=== PATIENT | female | born 1950 | race Caucasian/White ===

== ENCOUNTER → 2019-04-25 16:19 | Outpatient (CLI) | payer MEDICARE, OTHER, SELFPAY ==
--- NOTE | 2019-04-25 | DI.MG.S_ITS ---
BILATERAL DIGITAL SCREENING MAMMOGRAM 3D/2D WITH CAD: 04/25/2019 CLINICAL: Routine screening. Family history of breast cancer. Comparison is made to exams dated: 03/30/2018 mammogram, 03/10/2017 mammogram, and 03/08/2016 mammogram - [facility]. There are scattered fibroglandular elements in both breasts. Current study was also evaluated with a Computer Aided Detection (CAD) system. There are new grouped heterogeneous calcifications in the right breast central to the nipple posterior depth. No other significant masses, calcifications, or other findings are seen in either breast. IMPRESSION: INCOMPLETE: NEEDS ADDITIONAL IMAGING EVALUATION The new grouped heterogeneous calcifications in the right breast are indeterminate. Mediolateral and spot magnification views are recommended. This exam was interpreted at Station ID: [id number]. NOTE: For mammograms, a report in lay terms will be sent to the patient. Approximately 15% of breast malignancies will not be visualized mammographically. In the management of a palpable breast mass, a negative mammogram must not discourage biopsy of a clinically suspicious lesion. Electronically Signed By: Corey rich/yanelis:04/26/2019 09:48:06 letter sent: Additional Imaging Needed ACR BI-RADS Category 0: Incomplete 3340F
== END ==
PROVIDERS: Family Provider Nurse Practitioner Family; PCP Nurse Practitioner Family; Visit Provider Nurse Practitioner Family
DX: Z12.31 Encounter for screening mammogram for malignant neoplasm of breast (principal); Z80.3 Family history of malignant neoplasm of breast
CPT/HCPCS: 77063; 77067

== ENCOUNTER → 2019-05-15 13:33 | Outpatient (CLI) | payer MEDICARE, OTHER, SELFPAY ==
--- NOTE | 2019-05-15 13:37 | DI.MG.S_ITS ---
UNILATERAL RIGHT DIGITAL DIAGNOSTIC MAMMOGRAM 3D/2D WITH ADDITIONAL VIEWS: 05/15/2019 CLINICAL: Additional evaluation requested from prior study. Comparison is made to exams dated: 04/25/2019 mammogram, 03/30/2018 mammogram, and 03/10/2017 mammogram - [facility]. There are scattered fibroglandular elements in right breast. The previously described grouped heterogeneous pleomorphic calcifications in the right breast central to the nipple middle depth are confirmed on today's additional views. These are new compared to screening mammogram of 2018. No associated mass or architectural distortion. No other significant masses or calcifications are seen in the breast. IMPRESSION: SUSPICIOUS OF MALIGNANCY The new grouped heterogeneous, pleomorphic calcifications in the right breast are suspicious of malignancy. A stereotactic biopsy is recommended. Findings were discussed with the patient by Dr. Anguiano. The patient agreed to proceed with stereotactic guided biopsy which will be scheduled for a later date. This exam was interpreted at Station ID: [id number]. NOTE: For mammograms, a report in lay terms will be sent to the patient. Approximately 15% of breast malignancies will not be visualized mammographically. In the management of a palpable breast mass, a negative mammogram must not discourage biopsy of a clinically suspicious lesion. Electronically Signed By: Corey Anguiano M.D. aty/:05/15/2019 14:41:09 letter sent: Biopsy Required ACR BI-RADS Category 4: Suspicious abnormality 3344F
== END ==
PROVIDERS: PCP Nurse Practitioner Family; Visit Provider Nurse Practitioner Family
DX: R92.1 Mammographic calcification found on diagnostic imaging of breast (principal)
CPT/HCPCS: 77065; G0279

== ENCOUNTER → 2019-09-27 09:56 | Outpatient (CLI) | payer MEDICARE, OTHER, SELFPAY | PROVIDERS: PCP Nurse Practitioner Family; Visit Provider Nurse Practitioner Family | DX: Z78.0 Asymptomatic menopausal state (principal); Z85.3 Personal history of malignant neoplasm of breast; Z90.722 Acquired absence of ovaries, bilateral | CPT/HCPCS: 77080 ==

== ENCOUNTER 2021-03-11 16:45 | Outpatient (RCR) | payer MEDICARE, OTHER, SELFPAY ==
--- NOTE | 2021-01-22 11:54 | PT.OIE ---
Current Diagnoses Pain in right shoulder (01/22/21) Stiffness of right shoulder, not elsewhere classified (01/22/21) Visit Care Team Role Provider Type Charis Russo MD Attending Provider Physician Primary Care Provider Referring Provider Specialty: [facility] Address: [address] [place] [address], [facility] [place], [address] Email: [email or web address] Physical Therapy Initial Evaluation PT-OP-A Visit Information Start: 01/22/21 11:19 Freq: Status: Active Protocol: Document 01/22/21 10:30 DCW (Rec: 01/22/21 11:54 DCW [id number]) Out-Patient Physical Therapy Visit Information Visit Information Visit Type Initial Evaluation Visit Start Time 10:30 Visit Stop Time 11:15 Total Visit Minutes 45 Visit Number 1 Number of ART HISTORY INSTRUCTOR Visits 0 Evaluation Information Evaluation Date 01/22/21 PT-OP-B Current Condition Start: 01/22/21 11:19 Freq: Status: Active Protocol: Document 01/22/21 10:30 DCW (Rec: 01/22/21 11:54 DCW [id number]) Current Condition History of Current Condition Onset Date Two year history Current Complaints Right shoulder pain and stiffness History of Current Condition Pt is a 70 year old female presenting is complaints of right shoulder stiffness. Pt has been having this difficulty since she had radiation to treat breast cancer two years ago. Pt reports she feels weaker in her right arm, and while she has relatively normal ROM, she has increased pain and tightness with overhead activities. Notes her shoulder aches most of the time. Pt also reports left shoulder surgery ten years ago to clean up some bone spurs, and she got frozen shoulder afterward, so she is worried about getting it on the right side now, since she is moving it less. Treatment Goals Patient/Caregiver Goals Improve flexibility and decrease pain in right shoulder PT-OP-C Subjective Start: 01/22/21 11:19 Freq: Status: Active Protocol: Document 01/22/21 10:30 DCW (Rec: 01/22/21 11:54 DCW [id number]) OP-PT Subjective Patient Comments Patient Comments It's not terrible, I could probably live with it, I'd just rather fix it if I could. Patient Reported Progress Same Patient Questionnaires Quick Dash- Upper Extremity Quick Dash UE Score 20% Quick Dash UE Impairment 20 to 39% Impaired (Score 20- 39) OP-PT Pain Assessment Pain Assessment Grid Paper Pain Assessment Grid Completed Yes Location Right Shoulder Intensity 4 Scale Used Numeric (0 - 10) Description Tender,Tightness PT-OP-E Functional Tests Start: 01/22/21 11:19 Freq: Status: Active Protocol: Document 01/22/21 10:30 DCW (Rec: 01/22/21 11:54 DCW [id number]) Functional Tests Apley's Scratch Test Action 1- Left Posterior opposite shoulder Action 1- Right Posterior opposite shoulder Action 2- Left T3 Action 2- Right C7 Action 3- Left T6 Action 3- Right T11 PT-OP-F Manual Assessment Start: 01/22/21 11:19 Freq: Status: Active Protocol: Document 01/22/21 10:30 DCW (Rec: 01/22/21 11:54 DCW [id number]) Manual Assessments Soft Tissue Assessment Soft Tissue Mobility Assessment Severe tightness with tenderness to palpation 3/4: Wincing and withdraw R Infraspinatus Moderate tightness with tenderness to palpation 2/4: Pain with wincing R Teres Minor and R Subscapularis Joint Mobility Assessment Joint Mobility Assessment Poor right scapulothoracic rhythm, right scapula moves in a 1:1 ratio with humerus in abduction until it reaches its endrange. PT-OP-K Range of Motion Start: 01/22/21 11:19 Freq: Status: Active Protocol: Document 01/22/21 10:30 DCW (Rec: 01/22/21 11:54 DCW [id number]) Shoulder Goniometric Range of Motion Shoulder Right Active Shoulder ROM WFL Yes Testing Position Sitting Comments ROM WNL, pain with flexion > 140? and abduction >100? PT-OP-M Strength Start: 01/22/21 11:19 Freq: Status: Active Protocol: Document 01/22/21 10:30 DCW (Rec: 01/22/21 11:54 DCW [id number]) Shoulder Strength Shoulder Manual Muscle Testing Right Flexion 4+ Good+ Extension 5 Normal Abduction (C5) 4 Good External Rotation 5 Normal Internal Rotation 5 Normal Left Flexion 5 Normal Extension 5 Normal Abduction (C5) 5 Normal External Rotation 5 Normal Internal Rotation 5 Normal PT-OP-T Assessment and Plan Start: 01/22/21 11:19 Freq: Status: Active Protocol: Document 01/22/21 10:30 DCW (Rec: 01/22/21 11:54 DCW [id number]) Physical Therapy Assessment Rehab Potential Rehabilitation Potential Excellent Evaluation Complexity Number of Personal Factors/Comorbidities 1-2 Number of Body Systems Impaired 1-2 Clinical Presentation at Evaluation Stable Impairments Impairments Activity Tolerance,Functional Activities,Functional Mobility ,Pain,ROM,Soft Tissue Mobility ,Tone Goals Two Impairment Difficulty performing normal exercise program due to pain with overhead ROM Engineering Lab Technician Goal (LTG) Pt to demonstrate pain free ROM in right shoulder with flexion and abduction to 170? LTG Duration 03/22/21 One Impairment Pt does not have an appropriate home exercise program Short Term Goal (STG) Pt to be independent and compliant with an appropriate HEP STG Duration 02/19/21 Assessment Summary Assessment Pt presents with signs and symptoms of increased parascapular tone and poor scapulothoracic rhythm. Pt has especially high tone in right infraspinatus and subscap, which results in her right scapula moving completely in tandem with her humerus, and then feeling tightness and pain upon her scapula reaching its fully abducted position. Most likely, this could be a side-effect from her radiation two years ago, however pt should benefit from skilled therapy focusing mainly on STM , flexibility, and joint mobilizations. Strengthening may also be beneficial, but overall pt does demonstrate fairly good strength at baseline. Physical Therapy Plan Frequency and Duration Frequency of Treatment 2x/Week Duration of Treatment Two months Plan of Care Start Date 01/22/21 Plan of Care End Date 03/22/21 Therapeutic Interventions Therapeutic Interventions Home Exercise Program,Joint Mobilizations,Manual Therapy, Neuromuscular Re-education, Patient/Caregiver Education, Self-Care/Home Management,Soft Tissue Mobilization, Therapeutic Exercises Next Visit Focus/Plan Next Note Type Treatment Note Next Visit Plan STM, flexibility, joint mobilization
--- NOTE | 2021-01-22 11:55 | PT.OPPOC ---
Physical, Occupational & Speech Therapy At [facility] Current Diagnoses Pain in right shoulder (01/22/21) Stiffness of right shoulder, not elsewhere classified (01/22/21) Visit Care Team Role Provider Type Charis Russo MD Attending Provider Physician Primary Care Provider Referring Provider Specialty: [facility] Address: [address] [place] [address], [employer] Email: [email or web address] Plan Of Care PT-OP-T Assessment and Plan Start: 01/22/21 11:19 Freq: Status: Active Protocol: Document 01/22/21 10:30 DCW (Rec: 01/22/21 11:54 DCW [id number]) Physical Therapy Assessment Rehab Potential Rehabilitation Potential Excellent Evaluation Complexity Number of Personal Factors/Comorbidities 1-2 Number of Body Systems Impaired 1-2 Clinical Presentation at Evaluation Stable Impairments Impairments Activity Tolerance,Functional Activities,Functional Mobility ,Pain,ROM,Soft Tissue Mobility ,Tone Goals Two Impairment Difficulty performing normal exercise program due to pain with overhead ROM Group Home Goal (LTG) Pt to demonstrate pain free ROM in right shoulder with flexion and abduction to 170? LTG Duration 03/22/21 One Impairment Pt does not have an appropriate home exercise program Short Term Goal (STG) Pt to be independent and compliant with an appropriate HEP STG Duration 02/19/21 Assessment Summary Assessment Pt presents with signs and symptoms of increased parascapular tone and poor scapulothoracic rhythm. Pt has especially high tone in right infraspinatus and subscap, which results in her right scapula moving completely in tandem with her humerus, and then feeling tightness and pain upon her scapula reaching its fully abducted position. Most likely, this could be a side-effect from her radiation two years ago, however pt should benefit from skilled therapy focusing mainly on STM , flexibility, and joint mobilizations. Strengthening may also be beneficial, but overall pt does demonstrate fairly good strength at baseline. Physical Therapy Plan Frequency and Duration Frequency of Treatment 2x/Week Duration of Treatment Two months Plan of Care Start Date 01/22/21 Plan of Care End Date 03/22/21 Therapeutic Interventions Therapeutic Interventions Home Exercise Program,Joint Mobilizations,Manual Therapy, Neuromuscular Re-education, Patient/Caregiver Education, Self-Care/Home Management,Soft Tissue Mobilization, Therapeutic Exercises Next Visit Focus/Plan Next Note Type Treatment Note Next Visit Plan STM, flexibility, joint mobilization Plan of Care Dates Plan of Care Start Date 01/22/21 Plan of Care End Date 03/22/21 Electronically Signed by: Sondio Hull, PT 01/22/21 2114 Please Sign and Return: I have reviewed this Plan of Care and certify that the skilled therapy services above are required to meet the patient?s needs. Physician Signature Date Printed Name and Credentials Clinical Instructor Signature Printed Name and Credentials
--- NOTE | 2021-01-27 09:50 | PT.OTN ---
Current Diagnoses Pain in right shoulder (01/27/21) Stiffness of right shoulder, not elsewhere classified (01/27/21) Physical Therapy Treatment Note PT-OP-A Visit Information Start: 01/22/21 11:19 Freq: Status: Active Protocol: Document 01/27/21 09:03 LD (Rec: 01/27/21 12:24 LD [id number]) Out-Patient Physical Therapy Visit Information Visit Information Visit Type Treatment Note Visit Note SPTA Blossom co led tx w/ SALES REPRESENTATIVE GROCERIES Sue. Visit Start Time 09:03 Visit Stop Time 09:50 Total Visit Minutes 47 Visit Number 2 Number of SALES REPRESENTATIVE GROCERIES Visits 1 PT-OP-B Current Condition Start: 01/22/21 11:19 Freq: Status: Active Protocol: Document 01/22/21 10:30 DCW (Rec: 01/22/21 11:54 DCW [id number]) Current Condition History of Current Condition Onset Date Two year history Current Complaints Right shoulder pain and stiffness History of Current Condition Pt is a 70 year old female presenting is complaints of right shoulder stiffness. Pt has been having this difficulty since she had radiation to treat breast cancer two years ago. Pt reports she feels weaker in her right arm, and while she has relatively normal ROM, she has increased pain and tightness with overhead activities. Notes her shoulder aches most of the time. Pt also reports left shoulder surgery ten years ago to clean up some bone spurs, and she got frozen shoulder afterward, so she is worried about getting it on the right side now, since she is moving it less. Treatment Goals Patient/Caregiver Goals Improve flexibility and decrease pain in right shoulder PT-OP-C Subjective Start: 01/22/21 11:19 Freq: Status: Active Protocol: Document 01/27/21 09:03 LD (Rec: 01/27/21 12:24 LD [id number]) OP-PT Subjective Patient Comments Patient Comments Pt reports feeling no pain after last treatment, ' whatever Artis did, I felt much better the next couple days, but pain came back.' Has a foam roller which she used frequently prior to covid. Pt also reports is getting covid vaccine on morning, may have to cancel appt on Tuesday depending on how she feels. PT-OP-E Functional Tests Start: 01/22/21 11:19 Freq: Status: Active Protocol: Document 01/22/21 10:30 DCW (Rec: 01/22/21 11:54 DCW [id number]) Functional Tests Apley's Scratch Test Action 1- Left Posterior opposite shoulder Action 1- Right Posterior opposite shoulder Action 2- Left T3 Action 2- Right C7 Action 3- Left T6 Action 3- Right T11 PT-OP-F Manual Assessment Start: 01/22/21 11:19 Freq: Status: Active Protocol: Document 01/22/21 10:30 DCW (Rec: 01/22/21 11:54 DCW [id number]) Manual Assessments Soft Tissue Assessment Soft Tissue Mobility Assessment Severe tightness with tenderness to palpation 3/4: Wincing and withdraw R Infraspinatus Moderate tightness with tenderness to palpation 2/4: Pain with wincing R Teres Minor and R Subscapularis Joint Mobility Assessment Joint Mobility Assessment Poor right scapulothoracic rhythm, right scapula moves in a 1:1 ratio with humerus in abduction until it reaches its endrange. PT-OP-K Range of Motion Start: 01/22/21 11:19 Freq: Status: Active Protocol: Document 01/22/21 10:30 DCW (Rec: 01/22/21 11:54 DCW [id number]) Shoulder Goniometric Range of Motion Shoulder Right Active Shoulder ROM WFL Yes Testing Position Sitting Comments ROM WNL, pain with flexion > 140? and abduction >100? PT-OP-M Strength Start: 01/22/21 11:19 Freq: Status: Active Protocol: Document 01/22/21 10:30 DCW (Rec: 01/22/21 11:54 DCW [id number]) Shoulder Strength Shoulder Manual Muscle Testing Right Flexion 4+ Good+ Extension 5 Normal Abduction (C5) 4 Good External Rotation 5 Normal Internal Rotation 5 Normal Left Flexion 5 Normal Extension 5 Normal Abduction (C5) 5 Normal External Rotation 5 Normal Internal Rotation 5 Normal PT-OP-Q Treatments Start: 01/22/21 11:19 Freq: Status: Active Protocol: Document 01/27/21 09:03 LD (Rec: 01/27/21 12:24 LD [id number]) Therapeutic Exercises Supine Exercises AROM flexion Side bilateral Equipment Used dowel Reps/Minutes 10x Comments tactile cues for scap depression, inferior humeral glide Prone Exercises scap retraction Side bilateral Reps/Minutes 5x5 sec Comments tactile cues for neutral CS and scap depression Sitting Exercises pec stretch Sitting Exercise Name table (supine) Side bilateral Equipment Used foam roll Reps/Minutes 2x30 sec Comments pt has foam roll at home she can use levator scap stretch Comments gentle pressure with opposite UE, same UE for stability upper trap stretch Side bilateral Reps/Minutes 2x30 sec Comments gentle pressure with opposite UE, same UE for stability Manual Therapy Treatment Soft Tissue Mobilization RTC Body Location R supra, infra, subscap, teres (distal>proximal) minor, upper trap Mobilization Type Myofascial Release, Oscillations,Strumming, Sustained Pressure Intensity/Depth Moderate Body Position supine,sidelying Joint Mobilizations GH post/inf glide Joint glenohumeral Direction posterior, inferior Grade II Body Position Supine GH anterior glide Joint glenohumeral Direction posterior, not anterior Grade II Body Position Supine Manual Techniques PNF R shld Body Location R shoulder Body Position Sidelying Reps/Duration 2x5 Comments PROM PT-OP-T Assessment and Plan Start: 01/22/21 11:19 Freq: Status: Active Protocol: Document 01/27/21 09:03 LD (Rec: 01/27/21 12:24 LD [id number]) Physical Therapy Assessment Goals Two Impairment Difficulty performing normal exercise program due to pain with overhead ROM Pig Conveyor Operator Goal (LTG) Pt to demonstrate pain free ROM in right shoulder with flexion and abduction to 170? LTG Duration 03/22/21 One Impairment Pt does not have an appropriate home exercise program Short Term Goal (STG) Pt to be independent and compliant with an appropriate HEP STG Duration 02/19/21 Assessment Summary Assessment Tx focus on manual and flexibility. Pt responded well to manual therapy. Added STMs , stretching and joint mobilization. Pt presents tightness in upper traps, requiring cues for scap stabilization and humeral depression awareness. Add open book next tx to increase scapular mobility with thoracic mobility. Pt reports no increased pain at end of tx. Physical Therapy Plan Frequency and Duration Frequency of Treatment 2x/Week Duration of Treatment Two months Plan of Care Start Date 01/22/21 Plan of Care End Date 03/22/21 Therapeutic Interventions Therapeutic Interventions Home Exercise Program,Joint Mobilizations,Manual Therapy, Neuromuscular Re-education, Patient/Caregiver Education, Self-Care/Home Management,Soft Tissue Mobilization, Therapeutic Exercises Next Visit Focus/Plan Next Note Type Treatment Note Next Visit Plan Assess response to last tx: manual, HEP review. Add open book next tx. Assess self use of foam roll for proper form. Possibility of cancelation due to covid shot. Continue to work on STM, flexibility, joint mobilization. Continue manual therapy.
--- NOTE | 2021-02-03 09:48 | PT.OTN ---
Current Diagnoses Pain in right shoulder (02/03/21) Stiffness of right shoulder, not elsewhere classified (02/03/21) Physical Therapy Treatment Note PT-OP-A Visit Information Start: 01/22/21 11:19 Freq: Status: Active Protocol: Document 02/03/21 09:03 SP (Rec: 02/03/21 11:59 SP [id number]) Out-Patient Physical Therapy Visit Information Visit Information Visit Type Treatment Note Visit Start Time 09:03 Visit Stop Time 09:48 Total Visit Minutes 45 Visit Number 3 Number of CONCRETE VAULT MAKER Visits 2 PT-OP-B Current Condition Start: 01/22/21 11:19 Freq: Status: Active Protocol: Document 01/22/21 10:30 DCW (Rec: 01/22/21 11:54 DCW [id number]) Current Condition History of Current Condition Onset Date Two year history Current Complaints Right shoulder pain and stiffness History of Current Condition Pt is a 70 year old female presenting is complaints of right shoulder stiffness. Pt has been having this difficulty since she had radiation to treat breast cancer two years ago. Pt reports she feels weaker in her right arm, and while she has relatively normal ROM, she has increased pain and tightness with overhead activities. Notes her shoulder aches most of the time. Pt also reports left shoulder surgery ten years ago to clean up some bone spurs, and she got frozen shoulder afterward, so she is worried about getting it on the right side now, since she is moving it less. Treatment Goals Patient/Caregiver Goals Improve flexibility and decrease pain in right shoulder PT-OP-C Subjective Start: 01/22/21 11:19 Freq: Status: Active Protocol: Document 02/03/21 09:03 SP (Rec: 02/03/21 11:59 SP [id number]) OP-PT Subjective Patient Comments Patient Comments Pt reported doing her exercises, still recovering from 2nd covid shot last Th sore lateral R shld. Pt stated had her last radiation appt and R shld maybe irritated due to having to rest R shld overhead for 15 min treatment. PT-OP-E Functional Tests Start: 01/22/21 11:19 Freq: Status: Active Protocol: Document 01/22/21 10:30 DCW (Rec: 01/22/21 11:54 DCW [id number]) Functional Tests Apley's Scratch Test Action 1- Left Posterior opposite shoulder Action 1- Right Posterior opposite shoulder Action 2- Left T3 Action 2- Right C7 Action 3- Left T6 Action 3- Right T11 PT-OP-F Manual Assessment Start: 01/22/21 11:19 Freq: Status: Active Protocol: Document 01/22/21 10:30 DCW (Rec: 01/22/21 11:54 DCW [id number]) Manual Assessments Soft Tissue Assessment Soft Tissue Mobility Assessment Severe tightness with tenderness to palpation 3/4: Wincing and withdraw R Infraspinatus Moderate tightness with tenderness to palpation 2/4: Pain with wincing R Teres Minor and R Subscapularis Joint Mobility Assessment Joint Mobility Assessment Poor right scapulothoracic rhythm, right scapula moves in a 1:1 ratio with humerus in abduction until it reaches its endrange. PT-OP-K Range of Motion Start: 01/22/21 11:19 Freq: Status: Active Protocol: Document 01/22/21 10:30 DCW (Rec: 01/22/21 11:54 DCW [id number]) Shoulder Goniometric Range of Motion Shoulder Right Active Shoulder ROM WFL Yes Testing Position Sitting Comments ROM WNL, pain with flexion > 140? and abduction >100? PT-OP-M Strength Start: 01/22/21 11:19 Freq: Status: Active Protocol: Document 01/22/21 10:30 DCW (Rec: 01/22/21 11:54 DCW [id number]) Shoulder Strength Shoulder Manual Muscle Testing Right Flexion 4+ Good+ Extension 5 Normal Abduction (C5) 4 Good External Rotation 5 Normal Internal Rotation 5 Normal Left Flexion 5 Normal Extension 5 Normal Abduction (C5) 5 Normal External Rotation 5 Normal Internal Rotation 5 Normal PT-OP-Q Treatments Start: 01/22/21 11:19 Freq: Status: Active Protocol: Document 02/03/21 09:03 SP (Rec: 02/03/21 11:59 SP [id number]) Therapeutic Exercises Supine Exercises pec stretch over foam roller Side bilateral Reps/Minutes 60 sec total various range AROM flexion Supine Exercise Name double w/dowel and single FF/ scaption AROM Side bilateral Resistance table then foam roller Equipment Used dowel Reps/Minutes 10x each Comments tactile cues for scap depression, inferior humeral glide Prone Exercises scap retraction Prone Exercise Name retraction > shld ext to side Side bilateral Reps/Minutes 5x3 sec Comments tactile cues for neutral CS and scap depression Manual Therapy Treatment Soft Tissue Mobilization RTC Body Location R supra, infra, subscap, teres minor, upper trap, pec, coracobrach, prbicep Mobilization Type Myofascial Release, Oscillations,Strumming, Sustained Pressure,Other Intensity/Depth Moderate Body Position Supine Comments Also Sustained pressure PROM FF, ER Joint Mobilizations GH post/inf glide Joint glenohumeral Direction posterior, inferior Grade II Body Position Supine Manual Techniques PNF R shld Body Location R shoulder Body Position Supine Comments PROM PT-OP-T Assessment and Plan Start: 01/22/21 11:19 Freq: Status: Active Protocol: Document 02/03/21 09:03 SP (Rec: 02/03/21 11:59 SP [id number]) Physical Therapy Assessment Goals Two Impairment Difficulty performing normal exercise program due to pain with overhead ROM Custodial Goal (LTG) Pt to demonstrate pain free ROM in right shoulder with flexion and abduction to 170? LTG Duration 03/22/21 One Impairment Pt does not have an appropriate home exercise program Short Term Goal (STG) Pt to be independent and compliant with an appropriate HEP STG Duration 02/19/21 Assessment Summary Assessment Tx focused on manual then AAROM with inferior glide, AAROM progressed to AROM over foam roller with good results, able to progress in range as reps progressed. Pt stated less pinching end of tx and feels really good doing ex over foam roller, has one at home and will do there. Tolerated prone scap retraction>shld ext, continue assess next tx to progress scap stab UE ex in standing. Physical Therapy Plan Frequency and Duration Frequency of Treatment 2x/Week Duration of Treatment Two months Plan of Care Start Date 01/22/21 Plan of Care End Date 03/22/21 Therapeutic Interventions Therapeutic Interventions Home Exercise Program,Joint Mobilizations,Manual Therapy, Neuromuscular Re-education, Patient/Caregiver Education, Self-Care/Home Management,Soft Tissue Mobilization, Therapeutic Exercises Next Visit Focus/Plan Next Note Type Treatment Note Next Visit Plan Assess response to last tx: manual, shld flex w/ dowel/ prone scap retraction/dep/shld ext last tx, AROM supne scaption over foam roller. Add open book next. Incorporate exercises w/ foam roll. Continue to work on STM, flexibility, joint mobilization.
--- NOTE | 2021-02-05 08:18 | PT.OTN ---
Current Diagnoses Pain in right shoulder (02/05/21) Stiffness of right shoulder, not elsewhere classified (02/05/21) Physical Therapy Treatment Note PT-OP-A Visit Information Start: 01/22/21 11:19 Freq: Status: Active Protocol: Document 02/05/21 07:30 SP (Rec: 02/05/21 09:51 SP [id number]) Out-Patient Physical Therapy Visit Information Visit Information Visit Type Treatment Note Visit Start Time 07:30 Visit Stop Time 08:18 Total Visit Minutes 48 Visit Number 4 Number of ACCOUNTS RECEIVABLE COLLECTOR Visits 3 PT-OP-B Current Condition Start: 01/22/21 11:19 Freq: Status: Active Protocol: Document 01/22/21 10:30 DCW (Rec: 01/22/21 11:54 DCW [id number]) Current Condition History of Current Condition Onset Date Two year history Current Complaints Right shoulder pain and stiffness History of Current Condition Pt is a 70 year old female presenting is complaints of right shoulder stiffness. Pt has been having this difficulty since she had radiation to treat breast cancer two years ago. Pt reports she feels weaker in her right arm, and while she has relatively normal ROM, she has increased pain and tightness with overhead activities. Notes her shoulder aches most of the time. Pt also reports left shoulder surgery ten years ago to clean up some bone spurs, and she got frozen shoulder afterward, so she is worried about getting it on the right side now, since she is moving it less. Treatment Goals Patient/Caregiver Goals Improve flexibility and decrease pain in right shoulder PT-OP-C Subjective Start: 01/22/21 11:19 Freq: Status: Active Protocol: Document 02/05/21 07:30 SP (Rec: 02/05/21 09:51 SP [id number]) OP-PT Subjective Patient Comments Patient Comments Pt stated neck is stiff this am on R, not sure if slept wrong last night, did some rowing this am already. PT-OP-E Functional Tests Start: 01/22/21 11:19 Freq: Status: Active Protocol: Document 01/22/21 10:30 DCW (Rec: 01/22/21 11:54 DCW [id number]) Functional Tests Apley's Scratch Test Action 1- Left Posterior opposite shoulder Action 1- Right Posterior opposite shoulder Action 2- Left T3 Action 2- Right C7 Action 3- Left T6 Action 3- Right T11 PT-OP-F Manual Assessment Start: 01/22/21 11:19 Freq: Status: Active Protocol: Document 01/22/21 10:30 DCW (Rec: 01/22/21 11:54 DCW [id number]) Manual Assessments Soft Tissue Assessment Soft Tissue Mobility Assessment Severe tightness with tenderness to palpation 3/4: Wincing and withdraw R Infraspinatus Moderate tightness with tenderness to palpation 2/4: Pain with wincing R Teres Minor and R Subscapularis Joint Mobility Assessment Joint Mobility Assessment Poor right scapulothoracic rhythm, right scapula moves in a 1:1 ratio with humerus in abduction until it reaches its endrange. PT-OP-K Range of Motion Start: 01/22/21 11:19 Freq: Status: Active Protocol: Document 01/22/21 10:30 DCW (Rec: 01/22/21 11:54 DCW [id number]) Shoulder Goniometric Range of Motion Shoulder Right Active Shoulder ROM WFL Yes Testing Position Sitting Comments ROM WNL, pain with flexion > 140? and abduction >100? PT-OP-M Strength Start: 01/22/21 11:19 Freq: Status: Active Protocol: Document 01/22/21 10:30 DCW (Rec: 01/22/21 11:54 DCW [id number]) Shoulder Strength Shoulder Manual Muscle Testing Right Flexion 4+ Good+ Extension 5 Normal Abduction (C5) 4 Good External Rotation 5 Normal Internal Rotation 5 Normal Left Flexion 5 Normal Extension 5 Normal Abduction (C5) 5 Normal External Rotation 5 Normal Internal Rotation 5 Normal PT-OP-Q Treatments Start: 01/22/21 11:19 Freq: Status: Active Protocol: Document 02/05/21 07:30 SP (Rec: 02/05/21 09:51 SP [id number]) Cardio Equipment Upper Body Ergometer (UBE) Duration (Minutes) 6 RPM 50 Seat Position 11 Height 2.5 Other cued scap depression positioning, decrease UT recruitment Therapeutic Exercises Supine Exercises HABD TB Supine Exercise Name added HEP Side bilateral Resistance TB #1 Equipment Used over foam roller Reps/Minutes x10 Comments cued scap depression pec stretch over foam roller Side bilateral Reps/Minutes 60 sec total various range AROM flexion Supine Exercise Name FF/ scaption Side bilateral Resistance AROM, added TB #1 today Equipment Used over foam roller Reps/Minutes 10x each Comments cues for scap depression, inferior humeral glide Prone Exercises scap retraction Prone Exercise Name retraction > shld ext to side Side bilateral Reps/Minutes 5x3 sec Comments tactile cues for neutral CS and scap depression Sidelying Exercises open book Sidelying Exercise Name added to HEP Side bilateral Reps/Minutes x10 each side Comments cued head with arm and scap depression awareness Sitting Exercises levator scap stretch Comments gentle pressure with opposite UE, same UE for stability upper trap stretch Side bilateral Reps/Minutes 2x30 sec Comments gentle pressure with opposite UE, same UE for stability Standing Exercises resisted row Standing Exercise Name added to HEP Resistance TB #1 Reps/Minutes x10 Comments cued scap stab/depression self STMs theracane Standing Exercise Name UT lev scap Side right Equipment Used theracane Reps/Minutes approx 1 min total Comments MWM: head turns, nods PT-OP-T Assessment and Plan Start: 01/22/21 11:19 Freq: Status: Active Protocol: Document 02/05/21 07:30 SP (Rec: 02/05/21 09:51 SP [id number]) Physical Therapy Assessment Goals Two Impairment Difficulty performing normal exercise program due to pain with overhead ROM [facility] Goal (LTG) Pt to demonstrate pain free ROM in right shoulder with flexion and abduction to 170? LTG Duration 03/22/21 One Impairment Pt does not have an appropriate home exercise program Short Term Goal (STG) Pt to be independent and compliant with an appropriate HEP STG Duration 02/19/21 Assessment Summary Assessment Pt responded well to tx. Initated UBE with cuing for scap stabilization and introduction to strengthening with no adverse affects. Incorporated TB with foam roller and standing with occasional cue for scap stab awareness with good carryover. Ended with Manual and self use of theracane. Pt stated felt better end tx. Reviewed self stretching HEP at home with verbal confirmation will do. Physical Therapy Plan Frequency and Duration Frequency of Treatment 2x/Week Duration of Treatment Two months Plan of Care Start Date 01/22/21 Plan of Care End Date 03/22/21 Therapeutic Interventions Therapeutic Interventions Home Exercise Program,Joint Mobilizations,Manual Therapy, Neuromuscular Re-education, Patient/Caregiver Education, Self-Care/Home Management,Soft Tissue Mobilization, Therapeutic Exercises Next Visit Focus/Plan Next Note Type Treatment Note Next Visit Plan Assess response to last Manual and self STMs to neck, supine TB on foam roller, standing rows. Continue to work on STM, flexibility, joint mobilization.
--- NOTE | 2021-02-09 17:34 | PT.OTN ---
Current Diagnoses Pain in right shoulder (02/09/21) Stiffness of right shoulder, not elsewhere classified (02/09/21) Physical Therapy Treatment Note PT-OP-A Visit Information Start: 01/22/21 11:19 Freq: Status: Active Protocol: Document 02/09/21 16:45 DCW (Rec: 02/09/21 17:34 DCW [id number]) Out-Patient Physical Therapy Visit Information Visit Information Visit Type Treatment Note Visit Start Time 16:45 Visit Stop Time 17:30 Total Visit Minutes 45 Visit Number 5 Number of INSURANCE RISK ANALYST Visits 0 Evaluation Information Evaluation Date 01/22/21 PT-OP-B Current Condition Start: 01/22/21 11:19 Freq: Status: Active Protocol: Document 01/22/21 10:30 DCW (Rec: 01/22/21 11:54 DCW [id number]) Current Condition History of Current Condition Onset Date Two year history Current Complaints Right shoulder pain and stiffness History of Current Condition Pt is a 70 year old female presenting is complaints of right shoulder stiffness. Pt has been having this difficulty since she had radiation to treat breast cancer two years ago. Pt reports she feels weaker in her right arm, and while she has relatively normal ROM, she has increased pain and tightness with overhead activities. Notes her shoulder aches most of the time. Pt also reports left shoulder surgery ten years ago to clean up some bone spurs, and she got frozen shoulder afterward, so she is worried about getting it on the right side now, since she is moving it less. Treatment Goals Patient/Caregiver Goals Improve flexibility and decrease pain in right shoulder PT-OP-C Subjective Start: 01/22/21 11:19 Freq: Status: Active Protocol: Document 02/09/21 16:45 DCW (Rec: 02/09/21 17:34 DCW [id number]) OP-PT Subjective Patient Comments Patient Comments Pt notes it has come and gone, but overall she is having less pain. PT-OP-E Functional Tests Start: 01/22/21 11:19 Freq: Status: Active Protocol: Document 01/22/21 10:30 DCW (Rec: 01/22/21 11:54 DCW [id number]) Functional Tests Apley's Scratch Test Action 1- Left Posterior opposite shoulder Action 1- Right Posterior opposite shoulder Action 2- Left T3 Action 2- Right C7 Action 3- Left T6 Action 3- Right T11 PT-OP-F Manual Assessment Start: 01/22/21 11:19 Freq: Status: Active Protocol: Document 01/22/21 10:30 DCW (Rec: 01/22/21 11:54 DCW [id number]) Manual Assessments Soft Tissue Assessment Soft Tissue Mobility Assessment Severe tightness with tenderness to palpation 3/4: Wincing and withdraw R Infraspinatus Moderate tightness with tenderness to palpation 2/4: Pain with wincing R Teres Minor and R Subscapularis Joint Mobility Assessment Joint Mobility Assessment Poor right scapulothoracic rhythm, right scapula moves in a 1:1 ratio with humerus in abduction until it reaches its endrange. PT-OP-K Range of Motion Start: 01/22/21 11:19 Freq: Status: Active Protocol: Document 01/22/21 10:30 DCW (Rec: 01/22/21 11:54 DCW [id number]) Shoulder Goniometric Range of Motion Shoulder Right Active Shoulder ROM WFL Yes Testing Position Sitting Comments ROM WNL, pain with flexion > 140? and abduction >100? PT-OP-M Strength Start: 01/22/21 11:19 Freq: Status: Active Protocol: Document 01/22/21 10:30 DCW (Rec: 01/22/21 11:54 DCW [id number]) Shoulder Strength Shoulder Manual Muscle Testing Right Flexion 4+ Good+ Extension 5 Normal Abduction (C5) 4 Good External Rotation 5 Normal Internal Rotation 5 Normal Left Flexion 5 Normal Extension 5 Normal Abduction (C5) 5 Normal External Rotation 5 Normal Internal Rotation 5 Normal PT-OP-Q Treatments Start: 01/22/21 11:19 Freq: Status: Active Protocol: Document 02/09/21 16:45 DCW (Rec: 02/09/21 17:34 DCW [id number]) Cardio Equipment Upper Body Ergometer (UBE) Duration (Minutes) 6 RPM 50 Seat Position 11 Height 2.5 Other cued scap depression positioning, decrease UT recruitment Therapeutic Exercises Sidelying Exercises open book Sidelying Exercise Name open book Side bilateral Reps/Minutes x10 each side Comments cued head with arm and scap depression awareness Standing Exercises pec stretch Standing Exercise Name doorway pec stretch extension Standing Exercise Name shoulder ext Side bilateral Resistance Lv 2 Equipment Used T-band resisted row Standing Exercise Name rows Resistance TB #2 Reps/Minutes x10 Comments cued scap stab/depression Manual Therapy Treatment Soft Tissue Mobilization RTC Body Location R supra, infra, subscap, teres minor, upper trap, pec, coracobrach, prbicep Mobilization Type Myofascial Release, Oscillations,Strumming, Sustained Pressure,Other Intensity/Depth Moderate Body Position Supine Comments Also Sustained pressure PROM FF, ER Joint Mobilizations GH post/inf glide Joint glenohumeral Direction posterior, inferior Grade II Body Position Supine PT-OP-T Assessment and Plan Start: 01/22/21 11:19 Freq: Status: Active Protocol: Document 02/09/21 16:45 DCW (Rec: 02/09/21 17:34 DCW [id number]) Physical Therapy Assessment Goals Two Impairment Difficulty performing normal exercise program due to pain with overhead ROM Powerhouse Laborer Goal (LTG) Pt to demonstrate pain free ROM in right shoulder with flexion and abduction to 170? LTG Duration 03/22/21 One Impairment Pt does not have an appropriate home exercise program Short Term Goal (STG) Pt to be independent and compliant with an appropriate HEP STG Duration 02/19/21 Assessment Summary Assessment Pt doing very well, although displaying increased tone in bilateral pecs, demonstrated pec stretch in doorway, pt interested in including it in HEP. Physical Therapy Plan Frequency and Duration Frequency of Treatment 2x/Week Duration of Treatment Two months Plan of Care Start Date 01/22/21 Plan of Care End Date 03/22/21 Therapeutic Interventions Therapeutic Interventions Home Exercise Program,Joint Mobilizations,Manual Therapy, Neuromuscular Re-education, Patient/Caregiver Education, Self-Care/Home Management,Soft Tissue Mobilization, Therapeutic Exercises Next Visit Focus/Plan Next Note Type Treatment Note Next Visit Plan Assess response to last Manual and self STMs to neck, supine TB on foam roller, standing rows. Continue to work on STM, flexibility, joint mobilization.
--- NOTE | 2021-02-12 17:28 | PT.OTN ---
Current Diagnoses Pain in right shoulder (02/12/21) Stiffness of right shoulder, not elsewhere classified (02/12/21) Physical Therapy Treatment Note PT-OP-A Visit Information Start: 01/22/21 11:19 Freq: Status: Active Protocol: Document 02/12/21 16:45 DCW (Rec: 02/12/21 17:28 DCW [id number]) Out-Patient Physical Therapy Visit Information Visit Information Visit Type Treatment Note Visit Start Time 16:45 Visit Stop Time 17:30 Total Visit Minutes 45 Visit Number 6 Number of SENIOR WATER RESOURCES ENGINEER Visits 0 Evaluation Information Evaluation Date 01/22/21 PT-OP-B Current Condition Start: 01/22/21 11:19 Freq: Status: Active Protocol: Document 01/22/21 10:30 DCW (Rec: 01/22/21 11:54 DCW [id number]) Current Condition History of Current Condition Onset Date Two year history Current Complaints Right shoulder pain and stiffness History of Current Condition Pt is a 70 year old female presenting is complaints of right shoulder stiffness. Pt has been having this difficulty since she had radiation to treat breast cancer two years ago. Pt reports she feels weaker in her right arm, and while she has relatively normal ROM, she has increased pain and tightness with overhead activities. Notes her shoulder aches most of the time. Pt also reports left shoulder surgery ten years ago to clean up some bone spurs, and she got frozen shoulder afterward, so she is worried about getting it on the right side now, since she is moving it less. Treatment Goals Patient/Caregiver Goals Improve flexibility and decrease pain in right shoulder PT-OP-C Subjective Start: 01/22/21 11:19 Freq: Status: Active Protocol: Document 02/12/21 16:45 DCW (Rec: 02/12/21 17:28 DCW [id number]) OP-PT Subjective Patient Comments Patient Comments Pt reports her shoulder is sore right now after practicing piano today. PT-OP-E Functional Tests Start: 01/22/21 11:19 Freq: Status: Active Protocol: Document 01/22/21 10:30 DCW (Rec: 01/22/21 11:54 DCW [id number]) Functional Tests Apley's Scratch Test Action 1- Left Posterior opposite shoulder Action 1- Right Posterior opposite shoulder Action 2- Left T3 Action 2- Right C7 Action 3- Left T6 Action 3- Right T11 PT-OP-F Manual Assessment Start: 01/22/21 11:19 Freq: Status: Active Protocol: Document 01/22/21 10:30 DCW (Rec: 01/22/21 11:54 DCW [id number]) Manual Assessments Soft Tissue Assessment Soft Tissue Mobility Assessment Severe tightness with tenderness to palpation 3/4: Wincing and withdraw R Infraspinatus Moderate tightness with tenderness to palpation 2/4: Pain with wincing R Teres Minor and R Subscapularis Joint Mobility Assessment Joint Mobility Assessment Poor right scapulothoracic rhythm, right scapula moves in a 1:1 ratio with humerus in abduction until it reaches its endrange. PT-OP-K Range of Motion Start: 01/22/21 11:19 Freq: Status: Active Protocol: Document 01/22/21 10:30 DCW (Rec: 01/22/21 11:54 DCW [id number]) Shoulder Goniometric Range of Motion Shoulder Right Active Shoulder ROM WFL Yes Testing Position Sitting Comments ROM WNL, pain with flexion > 140? and abduction >100? PT-OP-M Strength Start: 01/22/21 11:19 Freq: Status: Active Protocol: Document 01/22/21 10:30 DCW (Rec: 01/22/21 11:54 DCW [id number]) Shoulder Strength Shoulder Manual Muscle Testing Right Flexion 4+ Good+ Extension 5 Normal Abduction (C5) 4 Good External Rotation 5 Normal Internal Rotation 5 Normal Left Flexion 5 Normal Extension 5 Normal Abduction (C5) 5 Normal External Rotation 5 Normal Internal Rotation 5 Normal PT-OP-Q Treatments Start: 01/22/21 11:19 Freq: Status: Active Protocol: Document 02/12/21 16:45 DCW (Rec: 02/12/21 17:28 DCW [id number]) Cardio Equipment Upper Body Ergometer (UBE) Duration (Minutes) 6 RPM 50 Seat Position 11 Height 2.5 Other cued scap depression positioning, decrease UT recruitment Therapeutic Exercises Supine Exercises Serratus Punch Supine Exercise Name Supine Serratus Punch Side bilateral Resistance 3# Standing Exercises D1/D2 Flexion Standing Exercise Name D1/D2 Flexion Side right Resistance 3# Reps/Minutes x15 Comments pain-free extension Standing Exercise Name shoulder ext Side bilateral Resistance Lv 2 Equipment Used T-band resisted row Standing Exercise Name rows Resistance TB #2 Reps/Minutes x10 Comments cued scap stab/depression Manual Therapy Treatment Soft Tissue Mobilization RTC Body Location R supra, infra, subscap, teres minor, upper trap, pec, coracobrach, prbicep Mobilization Type Myofascial Release, Oscillations,Strumming, Sustained Pressure,Other Intensity/Depth Moderate Body Position Supine Comments Also Sustained pressure PROM FF, ER Joint Mobilizations GH post/inf glide Joint glenohumeral Direction posterior, inferior Grade II Body Position Supine PT-OP-T Assessment and Plan Start: 01/22/21 11:19 Freq: Status: Active Protocol: Document 02/12/21 16:45 DCW (Rec: 02/12/21 17:28 DCW [id number]) Physical Therapy Assessment Impairments Impairments Activity Tolerance,Functional Activities,Functional Mobility ,Pain,ROM,Soft Tissue Mobility ,Tone Goals Two Impairment Difficulty performing normal exercise program due to pain with overhead ROM Chcf Goal (LTG) Pt to demonstrate pain free ROM in right shoulder with flexion and abduction to 170? LTG Duration 03/22/21 One Impairment Pt does not have an appropriate home exercise program Short Term Goal (STG) Pt to be independent and compliant with an appropriate HEP STG Duration 02/19/21 Assessment Summary Assessment Pt showing decrease in tone vs last visit, felt like the STM was less tender today. Pt does express frustration that her recovery is not going more quickly. Physical Therapy Plan Frequency and Duration Frequency of Treatment 2x/Week Duration of Treatment Two months Plan of Care Start Date 01/22/21 Plan of Care End Date 03/22/21 Therapeutic Interventions Therapeutic Interventions Home Exercise Program,Joint Mobilizations,Manual Therapy, Neuromuscular Re-education, Patient/Caregiver Education, Self-Care/Home Management,Soft Tissue Mobilization, Therapeutic Exercises Next Visit Focus/Plan Next Note Type Treatment Note Next Visit Plan Assess response to last Manual and self STMs to neck, supine TB on foam roller, standing rows. Continue to work on STM, flexibility, joint mobilization.
--- NOTE | 2021-02-19 12:02 | PT.OTN ---
Current Diagnoses Pain in right shoulder (02/19/21) Stiffness of right shoulder, not elsewhere classified (02/19/21) Physical Therapy Treatment Note PT-OP-A Visit Information Start: 01/22/21 11:19 Freq: Status: Active Protocol: Document 02/19/21 11:15 DCW (Rec: 02/19/21 12:02 DCW [id number]) Out-Patient Physical Therapy Visit Information Visit Information Visit Type Treatment Note Visit Start Time 11:15 Visit Stop Time 12:00 Total Visit Minutes 45 Visit Number 7 Number of TUBE WINDER HAND Visits 0 Evaluation Information Evaluation Date 01/22/21 PT-OP-B Current Condition Start: 01/22/21 11:19 Freq: Status: Active Protocol: Document 01/22/21 10:30 DCW (Rec: 01/22/21 11:54 DCW [id number]) Current Condition History of Current Condition Onset Date Two year history Current Complaints Right shoulder pain and stiffness History of Current Condition Pt is a 70 year old female presenting is complaints of right shoulder stiffness. Pt has been having this difficulty since she had radiation to treat breast cancer two years ago. Pt reports she feels weaker in her right arm, and while she has relatively normal ROM, she has increased pain and tightness with overhead activities. Notes her shoulder aches most of the time. Pt also reports left shoulder surgery ten years ago to clean up some bone spurs, and she got frozen shoulder afterward, so she is worried about getting it on the right side now, since she is moving it less. Treatment Goals Patient/Caregiver Goals Improve flexibility and decrease pain in right shoulder PT-OP-C Subjective Start: 01/22/21 11:19 Freq: Status: Active Protocol: Document 02/19/21 11:15 DCW (Rec: 02/19/21 12:02 DCW [id number]) OP-PT Subjective Patient Comments Patient Comments You know, it's actually getting better. PT-OP-E Functional Tests Start: 01/22/21 11:19 Freq: Status: Active Protocol: Document 01/22/21 10:30 DCW (Rec: 01/22/21 11:54 DCW [id number]) Functional Tests Apley's Scratch Test Action 1- Left Posterior opposite shoulder Action 1- Right Posterior opposite shoulder Action 2- Left T3 Action 2- Right C7 Action 3- Left T6 Action 3- Right T11 PT-OP-F Manual Assessment Start: 01/22/21 11:19 Freq: Status: Active Protocol: Document 01/22/21 10:30 DCW (Rec: 01/22/21 11:54 DCW [id number]) Manual Assessments Soft Tissue Assessment Soft Tissue Mobility Assessment Severe tightness with tenderness to palpation 3/4: Wincing and withdraw R Infraspinatus Moderate tightness with tenderness to palpation 2/4: Pain with wincing R Teres Minor and R Subscapularis Joint Mobility Assessment Joint Mobility Assessment Poor right scapulothoracic rhythm, right scapula moves in a 1:1 ratio with humerus in abduction until it reaches its endrange. PT-OP-K Range of Motion Start: 01/22/21 11:19 Freq: Status: Active Protocol: Document 01/22/21 10:30 DCW (Rec: 01/22/21 11:54 DCW [id number]) Shoulder Goniometric Range of Motion Shoulder Right Active Shoulder ROM WFL Yes Testing Position Sitting Comments ROM WNL, pain with flexion > 140? and abduction >100? PT-OP-M Strength Start: 01/22/21 11:19 Freq: Status: Active Protocol: Document 01/22/21 10:30 DCW (Rec: 01/22/21 11:54 DCW [id number]) Shoulder Strength Shoulder Manual Muscle Testing Right Flexion 4+ Good+ Extension 5 Normal Abduction (C5) 4 Good External Rotation 5 Normal Internal Rotation 5 Normal Left Flexion 5 Normal Extension 5 Normal Abduction (C5) 5 Normal External Rotation 5 Normal Internal Rotation 5 Normal PT-OP-Q Treatments Start: 01/22/21 11:19 Freq: Status: Active Protocol: Document 02/19/21 11:15 DCW (Rec: 02/19/21 12:02 DCW [id number]) Cardio Equipment Upper Body Ergometer (UBE) Duration (Minutes) 6 RPM 50 Seat Position 11 Height 2.5 Other cued scap depression positioning, decrease UT recruitment Therapeutic Exercises Standing Exercises Wall push-ups Standing Exercise Name Wall push-ups Reps/Minutes x15 Comments <> and W hand positions D1/D2 Flexion Standing Exercise Name D1/D2 Flexion Side right Resistance 3# Reps/Minutes x15 Comments pain-free pec stretch Standing Exercise Name doorway pec stretch extension Standing Exercise Name shoulder ext Side bilateral Resistance Lv 3 Equipment Used T-band resisted row Standing Exercise Name rows Resistance TB #3 Reps/Minutes x10 Comments cued scap stab/depression Manual Therapy Treatment Soft Tissue Mobilization RTC Body Location R supra, infra, subscap, teres minor, upper trap, pec, coracobrach, prbicep Mobilization Type Myofascial Release, Oscillations,Strumming, Sustained Pressure,Other Intensity/Depth Moderate Body Position Supine Comments Also Sustained pressure PROM FF, ER Joint Mobilizations GH post/inf glide Joint glenohumeral Direction posterior, inferior Grade II Body Position Supine PT-OP-T Assessment and Plan Start: 01/22/21 11:19 Freq: Status: Active Protocol: Document 02/19/21 11:15 DCW (Rec: 02/19/21 12:02 DCW [id number]) Physical Therapy Assessment Impairments Impairments Activity Tolerance,Functional Activities,Functional Mobility ,Pain,ROM,Soft Tissue Mobility ,Tone Goals Two Impairment Difficulty performing normal exercise program due to pain with overhead ROM Relief Map Modeler Goal (LTG) Pt to demonstrate pain free ROM in right shoulder with flexion and abduction to 170? LTG Duration 03/22/21 One Impairment Pt does not have an appropriate home exercise program Short Term Goal (STG) Pt to be independent and compliant with an appropriate HEP STG Duration 02/19/21 Assessment Summary Assessment Pt more upbeat about her recovery today, showing good progress in increased pain- free ROM, decreased tone. Physical Therapy Plan Frequency and Duration Frequency of Treatment 2x/Week Duration of Treatment Two months Plan of Care Start Date 01/22/21 Plan of Care End Date 03/22/21 Therapeutic Interventions Therapeutic Interventions Home Exercise Program,Joint Mobilizations,Manual Therapy, Neuromuscular Re-education, Patient/Caregiver Education, Self-Care/Home Management,Soft Tissue Mobilization, Therapeutic Exercises Next Visit Focus/Plan Next Note Type Treatment Note Next Visit Plan Assess response to last Manual and self STMs to neck, supine TB on foam roller, standing rows. Continue to work on STM, flexibility, joint mobilization.
--- NOTE | 2021-02-27 10:28 | PT.OTN ---
Current Diagnoses Pain in right shoulder (02/27/21) Stiffness of right shoulder, not elsewhere classified (02/27/21) Physical Therapy Treatment Note PT-OP-A Visit Information Start: 01/22/21 11:19 Freq: Status: Active Protocol: Document 02/27/21 09:45 DCW (Rec: 02/27/21 10:28 DCW [id number]) Out-Patient Physical Therapy Visit Information Visit Information Visit Type Treatment Note Visit Start Time 09:45 Visit Stop Time 10:30 Total Visit Minutes 45 Visit Number 8 Number of WINDOW TRIMMER Visits 0 Evaluation Information Evaluation Date 01/22/21 PT-OP-B Current Condition Start: 01/22/21 11:19 Freq: Status: Active Protocol: Document 01/22/21 10:30 DCW (Rec: 01/22/21 11:54 DCW [id number]) Current Condition History of Current Condition Onset Date Two year history Current Complaints Right shoulder pain and stiffness History of Current Condition Pt is a 70 year old female presenting is complaints of right shoulder stiffness. Pt has been having this difficulty since she had radiation to treat breast cancer two years ago. Pt reports she feels weaker in her right arm, and while she has relatively normal ROM, she has increased pain and tightness with overhead activities. Notes her shoulder aches most of the time. Pt also reports left shoulder surgery ten years ago to clean up some bone spurs, and she got frozen shoulder afterward, so she is worried about getting it on the right side now, since she is moving it less. Treatment Goals Patient/Caregiver Goals Improve flexibility and decrease pain in right shoulder PT-OP-C Subjective Start: 01/22/21 11:19 Freq: Status: Active Protocol: Document 02/27/21 09:45 DCW (Rec: 02/27/21 10:28 DCW [id number]) OP-PT Subjective Patient Comments Patient Comments It's getting better, I think. I have more freedom to move it, it stretches better. PT-OP-E Functional Tests Start: 01/22/21 11:19 Freq: Status: Active Protocol: Document 01/22/21 10:30 DCW (Rec: 01/22/21 11:54 DCW [id number]) Functional Tests Apley's Scratch Test Action 1- Left Posterior opposite shoulder Action 1- Right Posterior opposite shoulder Action 2- Left T3 Action 2- Right C7 Action 3- Left T6 Action 3- Right T11 PT-OP-F Manual Assessment Start: 01/22/21 11:19 Freq: Status: Active Protocol: Document 01/22/21 10:30 DCW (Rec: 01/22/21 11:54 DCW [id number]) Manual Assessments Soft Tissue Assessment Soft Tissue Mobility Assessment Severe tightness with tenderness to palpation 3/4: Wincing and withdraw R Infraspinatus Moderate tightness with tenderness to palpation 2/4: Pain with wincing R Teres Minor and R Subscapularis Joint Mobility Assessment Joint Mobility Assessment Poor right scapulothoracic rhythm, right scapula moves in a 1:1 ratio with humerus in abduction until it reaches its endrange. PT-OP-K Range of Motion Start: 01/22/21 11:19 Freq: Status: Active Protocol: Document 01/22/21 10:30 DCW (Rec: 01/22/21 11:54 DCW [id number]) Shoulder Goniometric Range of Motion Shoulder Right Active Shoulder ROM WFL Yes Testing Position Sitting Comments ROM WNL, pain with flexion > 140? and abduction >100? PT-OP-M Strength Start: 01/22/21 11:19 Freq: Status: Active Protocol: Document 01/22/21 10:30 DCW (Rec: 01/22/21 11:54 DCW [id number]) Shoulder Strength Shoulder Manual Muscle Testing Right Flexion 4+ Good+ Extension 5 Normal Abduction (C5) 4 Good External Rotation 5 Normal Internal Rotation 5 Normal Left Flexion 5 Normal Extension 5 Normal Abduction (C5) 5 Normal External Rotation 5 Normal Internal Rotation 5 Normal PT-OP-Q Treatments Start: 01/22/21 11:19 Freq: Status: Active Protocol: Document 02/27/21 09:45 DCW (Rec: 02/27/21 10:28 DCW [id number]) Cardio Equipment Upper Body Ergometer (UBE) Duration (Minutes) 6 RPM 50 Seat Position 11 Height 2.5 Other cued scap depression positioning, decrease UT recruitment Therapeutic Exercises Standing Exercises Wall push-ups Standing Exercise Name Wall push-ups Reps/Minutes x15 each Comments <> and W hand positions D1/D2 Flexion Standing Exercise Name D1/D2 Flexion Side right Resistance 3# Reps/Minutes x15 Comments pain-free extension Standing Exercise Name shoulder ext Side bilateral Resistance Lv 3 Equipment Used T-band resisted row Standing Exercise Name rows Resistance TB #3 Reps/Minutes x10 Comments cued scap stab/depression Manual Therapy Treatment Soft Tissue Mobilization RTC Body Location R supra, infra, subscap, teres minor, upper trap, pec, coracobrach, prbicep Mobilization Type Myofascial Release, Oscillations,Strumming, Sustained Pressure,Other Intensity/Depth Moderate Body Position Supine Comments Also Sustained pressure PROM FF, ER Joint Mobilizations GH post/inf glide Joint glenohumeral Direction posterior, inferior Grade II Body Position Supine PT-OP-T Assessment and Plan Start: 01/22/21 11:19 Freq: Status: Active Protocol: Document 02/27/21 09:45 DCW (Rec: 02/27/21 10:28 DCW [id number]) Physical Therapy Assessment Impairments Impairments Activity Tolerance,Functional Activities,Functional Mobility ,Pain,ROM,Soft Tissue Mobility ,Tone Goals Two Impairment Difficulty performing normal exercise program due to pain with overhead ROM Traveling Crane Operator Goal (LTG) Pt to demonstrate pain free ROM in right shoulder with flexion and abduction to 170? LTG Duration 03/22/21 One Impairment Pt does not have an appropriate home exercise program Short Term Goal (STG) Pt to be independent and compliant with an appropriate HEP STG Duration 02/19/21 Assessment Summary Assessment Pt showing overall good progress recently, better scapulothoracic rhythm. Physical Therapy Plan Frequency and Duration Frequency of Treatment 2x/Week Duration of Treatment Two months Plan of Care Start Date 01/22/21 Plan of Care End Date 03/22/21 Therapeutic Interventions Therapeutic Interventions Home Exercise Program,Joint Mobilizations,Manual Therapy, Neuromuscular Re-education, Patient/Caregiver Education, Self-Care/Home Management,Soft Tissue Mobilization, Therapeutic Exercises Next Visit Focus/Plan Next Note Type Treatment Note Next Visit Plan Assess response to last Manual and self STMs to neck, supine TB on foam roller, standing rows. Continue to work on STM, flexibility, joint mobilization.
--- NOTE | 2021-03-02 10:31 | PT.OTN ---
Current Diagnoses Pain in right shoulder (03/02/21) Stiffness of right shoulder, not elsewhere classified (03/02/21) Physical Therapy Treatment Note PT-OP-A Visit Information Start: 01/22/21 11:19 Freq: Status: Active Protocol: Document 03/02/21 09:46 DCW (Rec: 03/02/21 10:30 DCW [id number]) Out-Patient Physical Therapy Visit Information Visit Information Visit Type Treatment Note Visit Start Time 09:46 Visit Stop Time 10:30 Total Visit Minutes 44 Visit Number 9 Number of [employer] MEDIA SPECIALIST Visits 0 Evaluation Information Evaluation Date 01/22/21 PT-OP-B Current Condition Start: 01/22/21 11:19 Freq: Status: Active Protocol: Document 01/22/21 10:30 DCW (Rec: 01/22/21 11:54 DCW [id number]) Current Condition History of Current Condition Onset Date Two year history Current Complaints Right shoulder pain and stiffness History of Current Condition Pt is a 70 year old female presenting is complaints of right shoulder stiffness. Pt has been having this difficulty since she had radiation to treat breast cancer two years ago. Pt reports she feels weaker in her right arm, and while she has relatively normal ROM, she has increased pain and tightness with overhead activities. Notes her shoulder aches most of the time. Pt also reports left shoulder surgery ten years ago to clean up some bone spurs, and she got frozen shoulder afterward, so she is worried about getting it on the right side now, since she is moving it less. Treatment Goals Patient/Caregiver Goals Improve flexibility and decrease pain in right shoulder PT-OP-C Subjective Start: 01/22/21 11:19 Freq: Status: Active Protocol: Document 03/02/21 09:46 DCW (Rec: 03/02/21 10:30 DCW [id number]) OP-PT Subjective Patient Comments Patient Comments It is better. There's still some restriction out to the side. PT-OP-E Functional Tests Start: 01/22/21 11:19 Freq: Status: Active Protocol: Document 01/22/21 10:30 DCW (Rec: 01/22/21 11:54 DCW [id number]) Functional Tests Apley's Scratch Test Action 1- Left Posterior opposite shoulder Action 1- Right Posterior opposite shoulder Action 2- Left T3 Action 2- Right C7 Action 3- Left T6 Action 3- Right T11 PT-OP-F Manual Assessment Start: 01/22/21 11:19 Freq: Status: Active Protocol: Document 01/22/21 10:30 DCW (Rec: 01/22/21 11:54 DCW [id number]) Manual Assessments Soft Tissue Assessment Soft Tissue Mobility Assessment Severe tightness with tenderness to palpation 3/4: Wincing and withdraw R Infraspinatus Moderate tightness with tenderness to palpation 2/4: Pain with wincing R Teres Minor and R Subscapularis Joint Mobility Assessment Joint Mobility Assessment Poor right scapulothoracic rhythm, right scapula moves in a 1:1 ratio with humerus in abduction until it reaches its endrange. PT-OP-K Range of Motion Start: 01/22/21 11:19 Freq: Status: Active Protocol: Document 01/22/21 10:30 DCW (Rec: 01/22/21 11:54 DCW [id number]) Shoulder Goniometric Range of Motion Shoulder Right Active Shoulder ROM WFL Yes Testing Position Sitting Comments ROM WNL, pain with flexion > 140? and abduction >100? PT-OP-M Strength Start: 01/22/21 11:19 Freq: Status: Active Protocol: Document 01/22/21 10:30 DCW (Rec: 01/22/21 11:54 DCW [id number]) Shoulder Strength Shoulder Manual Muscle Testing Right Flexion 4+ Good+ Extension 5 Normal Abduction (C5) 4 Good External Rotation 5 Normal Internal Rotation 5 Normal Left Flexion 5 Normal Extension 5 Normal Abduction (C5) 5 Normal External Rotation 5 Normal Internal Rotation 5 Normal PT-OP-Q Treatments Start: 01/22/21 11:19 Freq: Status: Active Protocol: Document 03/02/21 09:46 DCW (Rec: 03/02/21 10:30 DCW [id number]) Cardio Equipment Upper Body Ergometer (UBE) Duration (Minutes) 6 RPM 50 Seat Position 11 Height 2.5 Other cued scap depression positioning, decrease UT recruitment Therapeutic Exercises Standing Exercises abduction Standing Exercise Name Shoulder abduction Side bilateral Resistance 3# Wall push-ups Standing Exercise Name Wall push-ups Reps/Minutes x15 each Comments <> and W hand positions D1/D2 Flexion Standing Exercise Name D1/D2 Flexion Side right Resistance 3# Reps/Minutes x15 Comments pain-free extension Standing Exercise Name shoulder ext Side bilateral Resistance Lv 3 Equipment Used T-band resisted row Standing Exercise Name rows Resistance TB #3 Reps/Minutes x10 Comments cued scap stab/depression Manual Therapy Treatment Soft Tissue Mobilization RTC Body Location R supra, infra, subscap, teres minor, upper trap, pec, coracobrach, prbicep Mobilization Type Myofascial Release, Oscillations,Strumming, Sustained Pressure,Other Intensity/Depth Moderate Body Position Supine Comments Also Sustained pressure PROM FF, ER Joint Mobilizations GH post/inf glide Joint glenohumeral Direction posterior, inferior Grade II Body Position Supine PT-OP-T Assessment and Plan Start: 01/22/21 11:19 Freq: Status: Active Protocol: Document 03/02/21 09:46 DCW (Rec: 03/02/21 10:30 DCW [id number]) Physical Therapy Assessment Impairments Impairments Activity Tolerance,Functional Activities,Functional Mobility ,Pain,ROM,Soft Tissue Mobility ,Tone Goals Two Impairment Difficulty performing normal exercise program due to pain with overhead ROM Intermediate Goal (LTG) Pt to demonstrate pain free ROM in right shoulder with flexion and abduction to 170? LTG Duration 03/22/21 One Impairment Pt does not have an appropriate home exercise program Short Term Goal (STG) Pt to be independent and compliant with an appropriate HEP STG Duration 02/19/21 Assessment Summary Assessment Pt continues to show great progress, ROM improving in all directions, WNL flexion, still mild limitations in abduction. Physical Therapy Plan Frequency and Duration Frequency of Treatment 2x/Week Duration of Treatment Two months Plan of Care Start Date 01/22/21 Plan of Care End Date 03/22/21 Therapeutic Interventions Therapeutic Interventions Home Exercise Program,Joint Mobilizations,Manual Therapy, Neuromuscular Re-education, Patient/Caregiver Education, Self-Care/Home Management,Soft Tissue Mobilization, Therapeutic Exercises Next Visit Focus/Plan Next Note Type Treatment Note Next Visit Plan Assess response to last Manual and self STMs to neck, supine TB on foam roller, standing rows. Continue to work on STM, flexibility, joint mobilization.
--- NOTE | 2021-03-04 10:29 | PT.OTN ---
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 Pt has been having this difficulty since she had radiation to treat breast cancer two years ago. Pt reports she feels weaker in her right arm, and while she has relatively normal ROM, she has increased pain and tightness with overhead activities. Notes her shoulder aches most of the time. Pt also reports left shoulder surgery ten years ago to clean up some bone spurs, and she got frozen shoulder afterward, so she is worried about getting it on the right side now, since she is moving it less. Treatment Goals Patient/Caregiver Goals Improve flexibility and decrease pain in right shoulder PT-OP-C Subjective Start: 01/22/21 11:19 Freq: Status: Active Protocol: Document 03/04/21 09:45 DCW (Rec: 03/04/21 10:29 DCW [id number]) OP-PT Subjective Patient Comments Patient Comments It's getting better, but there's still some weakness to it. PT-OP-E Functional Tests Start: 01/22/21 11:19 Freq: Status: Active Protocol: Document 01/22/21 10:30 DCW (Rec: 01/22/21 11:54 DCW [id number]) Functional Tests Apley's Scratch Test Action 1- Left Posterior opposite shoulder Action 1- Right Posterior opposite shoulder Action 2- Left T3 Action 2- Right C7 Action 3- Left T6 Action 3- Right T11 PT-OP-F Manual Assessment Start: 01/22/21 11:19 Freq: Status: Active Protocol: Document 01/22/21 10:30 DCW (Rec: 01/22/21 11:54 DCW [id number]) Manual Assessments Soft Tissue Assessment Soft Tissue Mobility Assessment Severe tightness with tenderness to palpation 3/4: Wincing and withdraw R Infraspinatus Moderate tightness with tenderness to palpation 2/4: Pain with wincing R Teres Minor and R Subscapularis Joint Mobility Assessment Joint Mobility Assessment Poor right scapulothoracic rhythm, right scapula moves in a 1:1 ratio with humerus in abduction until it reaches its endrange. PT-OP-K Range of Motion Start: 01/22/21 11:19 Freq: Status: Active Protocol: Document 01/22/21 10:30 DCW (Rec: 01/22/21 11:54 DCW [id number]) Shoulder Goniometric Range of Motion Shoulder Right Active Shoulder ROM WFL Yes Testing Position Sitting Comments ROM WNL, pain with flexion > 140? and abduction >100? PT-OP-M Strength Start: 01/22/21 11:19 Freq: Status: Active Protocol: Document 01/22/21 10:30 DCW (Rec: 01/22/21 11:54 DCW [id number]) Shoulder Strength Shoulder Manual Muscle Testing Right Flexion 4+ Good+ Extension 5 Normal Abduction (C5) 4 Good External Rotation 5 Normal Internal Rotation 5 Normal Left Flexion 5 Normal Extension 5 Normal Abduction (C5) 5 Normal External Rotation 5 Normal Internal Rotation 5 Normal PT-OP-Q Treatments Start: 01/22/21 11:19 Freq: Status: Active Protocol: Document 03/04/21 09:45 DCW (Rec: 03/04/21 10:29 DCW [id number]) Cardio Equipment Upper Body Ergometer (UBE) Duration (Minutes) 6 RPM 50 Seat Position 11 Height 2.5 Other cued scap depression positioning, decrease UT recruitment Therapeutic Exercises Standing Exercises abduction Standing Exercise Name Shoulder abduction Side bilateral Resistance 3# Wall push-ups Standing Exercise Name Wall push-ups Reps/Minutes x15 each Comments <> and W hand positions D1/D2 Flexion Standing Exercise Name D1/D2 Flexion Side right Resistance 3# Reps/Minutes x15 Comments pain-free extension Standing Exercise Name shoulder ext Side bilateral Resistance Lv 3 Equipment Used T-band resisted row Standing Exercise Name rows Resistance TB #3 Reps/Minutes x10 Comments cued scap stab/depression Other Exercises 1 Other Exercise Name UE Resisted side-stepping Resistance Yellow Equipment Used T-band Manual Therapy Treatment Soft Tissue Mobilization RTC Body Location R supra, infra, subscap, teres minor, upper trap, pec, coracobrach, prbicep Mobilization Type Myofascial Release, Oscillations,Strumming, Sustained Pressure,Other Intensity/Depth Moderate Body Position Supine Comments Also Sustained pressure PROM FF, ER Joint Mobilizations GH post/inf glide Joint glenohumeral Direction posterior, inferior Grade II Body Position Supine PT-OP-T Assessment and Plan Start: 01/22/21 11:19 Freq: Status: Active Protocol: Document 03/04/21 09:45 DCW (Rec: 03/04/21 10:29 DCW [id number]) Physical Therapy Assessment Impairments Impairments Activity Tolerance,Functional Activities,Functional Mobility ,Pain,ROM,Soft Tissue Mobility ,Tone Goals Two Impairment Difficulty performing normal exercise program due to pain with overhead ROM Pump Attendant Goal (LTG) Pt to demonstrate pain free ROM in right shoulder with flexion and abduction to 170? LTG Duration 03/22/21 One Impairment Pt does not have an appropriate home exercise program Short Term Goal (STG) Pt to be independent and compliant with an appropriate HEP STG Duration 02/19/21 Assessment Summary Assessment Pt still slightly limited with end-range ROM, overall substantially less pain and improved mobility Physical Therapy Plan Frequency and Duration Frequency of Treatment 2x/Week Duration of Treatment Two months Plan of Care Start Date 01/22/21 Plan of Care End Date 03/22/21 Therapeutic Interventions Therapeutic Interventions Home Exercise Program,Joint Mobilizations,Manual Therapy, Neuromuscular Re-education, Patient/Caregiver Education, Self-Care/Home Management,Soft Tissue Mobilization, Therapeutic Exercises Next Visit Focus/Plan Next Note Type Treatment Note Next Visit Plan Assess response to last Manual and self STMs to neck, supine TB on foam roller, standing rows. Continue to work on STM, flexibility, joint mobilization.
--- NOTE | 2021-03-11 17:33 | PT.OTN ---
Current Diagnoses Pain in right shoulder (03/11/21) Stiffness of right shoulder, not elsewhere classified (03/11/21) Physical Therapy Treatment Note PT-OP-A Visit Information Start: 01/22/21 11:19 Freq: Status: Active Protocol: Document 03/11/21 16:48 DCW (Rec: 03/11/21 17:30 DCW [id number]) Out-Patient Physical Therapy Visit Information Visit Information Visit Type Discharge Summary Visit Start Time 16:48 Visit Stop Time 17:20 Total Visit Minutes 32 Visit Number 11 Number of [employer] ACCOUNT MANAGER Visits 0 Evaluation Information Evaluation Date 01/22/21 PT-OP-B Current Condition Start: 01/22/21 11:19 Freq: Status: Active Protocol: Document 01/22/21 10:30 DCW (Rec: 01/22/21 11:54 DCW [id number]) Current Condition History of Current Condition Onset Date Two year history Current Complaints Right shoulder pain and stiffness History of Current Condition Pt is a 70 year old female presenting is complaints of right shoulder stiffness. Pt has been having this difficulty since she had radiation to treat breast cancer two years ago. Pt reports she feels weaker in her right arm, and while she has relatively normal ROM, she has increased pain and tightness with overhead activities. Notes her shoulder aches most of the time. Pt also reports left shoulder surgery ten years ago to clean up some bone spurs, and she got frozen shoulder afterward, so she is worried about getting it on the right side now, since she is moving it less. Treatment Goals Patient/Caregiver Goals Improve flexibility and decrease pain in right shoulder PT-OP-C Subjective Start: 01/22/21 11:19 Freq: Status: Active Protocol: Document 03/11/21 16:48 DCW (Rec: 03/11/21 17:30 DCW [id number]) OP-PT Subjective Patient Comments Patient Comments It seems to be doing a lot better. PT-OP-E Functional Tests Start: 01/22/21 11:19 Freq: Status: Active Protocol: Document 03/11/21 16:48 DCW (Rec: 03/11/21 17:33 DCW [id number]) Functional Tests Apley's Scratch Test Action 1- Left Posterior opposite shoulder Action 1- Right Posterior opposite shoulder Action 2- Left T4 Action 2- Right T4 Action 3- Left T6 Action 3- Right T8 PT-OP-F Manual Assessment Start: 01/22/21 11:19 Freq: Status: Active Protocol: Document 03/11/21 16:48 DCW (Rec: 03/11/21 17:33 DCW [id number]) Manual Assessments Soft Tissue Assessment Soft Tissue Mobility Assessment Mild tightness with tenderness to palpation 1/4: complaint of pain along R Infraspinatus, R Teres Minor, and R Subscapularis Joint Mobility Assessment Joint Mobility Assessment Scapulothoracic rhythm WNL PT-OP-K Range of Motion Start: 01/22/21 11:19 Freq: Status: Active Protocol: Document 03/11/21 16:48 DCW (Rec: 03/11/21 17:33 DCW [id number]) Shoulder Goniometric Range of Motion Shoulder Right Active Shoulder ROM WFL Yes Testing Position Sitting Comments ROM WNL, pain with flexion > 170? and abduction >170? PT-OP-M Strength Start: 01/22/21 11:19 Freq: Status: Active Protocol: Document 03/11/21 16:48 DCW (Rec: 03/11/21 17:33 DCW [id number]) Shoulder Strength Shoulder Manual Muscle Testing Right Flexion 5 Normal Extension 5 Normal Abduction (C5) 5 Normal External Rotation 5 Normal Internal Rotation 5 Normal Left Flexion 5 Normal Extension 5 Normal Abduction (C5) 5 Normal External Rotation 5 Normal Internal Rotation 5 Normal PT-OP-Q Treatments Start: 01/22/21 11:19 Freq: Status: Active Protocol: Document 03/11/21 16:48 DCW (Rec: 03/11/21 17:30 DCW [id number]) Cardio Equipment Upper Body Ergometer (UBE) Duration (Minutes) 6 RPM 50 Seat Position 11 Height 2.5 Other cued scap depression positioning, decrease UT recruitment Manual Therapy Treatment Soft Tissue Mobilization RTC Body Location R supra, infra, subscap, teres minor, upper trap, pec, coracobrach, prbicep Mobilization Type Myofascial Release, Oscillations,Strumming, Sustained Pressure,Other Intensity/Depth Moderate Body Position Supine Comments Also Sustained pressure PROM FF, ER Joint Mobilizations GH post/inf glide Joint glenohumeral Direction posterior, inferior Grade II Body Position Supine PT-OP-T Assessment and Plan Start: 01/22/21 11:19 Freq: Status: Active Protocol: Document 03/11/21 16:48 DCW (Rec: 03/11/21 17:30 DCW [id number]) Physical Therapy Assessment Impairments Impairments Activity Tolerance,Functional Activities,Functional Mobility ,Pain,ROM,Soft Tissue Mobility ,Tone Goals Two Impairment Difficulty performing normal exercise program due to pain with overhead ROM Alf Goal (LTG) Pt to demonstrate pain free ROM in right shoulder with flexion and abduction to 170? LTG Duration Met One Impairment Pt does not have an appropriate home exercise program Short Term Goal (STG) Pt to be independent and compliant with an appropriate HEP STG Duration Met Assessment Summary Assessment Pt doing very well, has met all goals, feeling optimistic with her current level of function. Pt agreeable to discharge at this time. Physical Therapy Plan Frequency and Duration Frequency of Treatment 2x/Week Duration of Treatment Two months Plan of Care Start Date 01/22/21 Plan of Care End Date 03/22/21 Therapeutic Interventions Therapeutic Interventions Home Exercise Program,Joint Mobilizations,Manual Therapy, Neuromuscular Re-education, Patient/Caregiver Education, Self-Care/Home Management,Soft Tissue Mobilization, Therapeutic Exercises Next Visit Focus/Plan Next Note Type Treatment Note Next Visit Plan Assess response to last Manual and self STMs to neck, supine TB on foam roller, standing rows. Continue to work on STM, flexibility, joint mobilization.
== END 2021-03-12 13:51 ==
LOC: PHYS 16:45
PROVIDERS: PCP Student in an Organized Health Care Education/Training Program; Referring Provider Student in an Organized Health Care Education/Training Program; Visit Provider Student in an Organized Health Care Education/Training Program
DX: M25.511 Pain in right shoulder (principal); M25.611 Stiffness of right shoulder, not elsewhere classified
CPT/HCPCS: 97110; 97140; 97161

== ENCOUNTER → 2022-08-11 09:52 | Outpatient (CLI) | payer MEDICARE, OTHER, SELFPAY ==
--- NOTE | 2022-08-11 09:54 | DI.RAD.S_ITS ---
PROCEDURE: XR KNEE RT 3V INDICATIONS: Right knee strain TECHNIQUE: 3 views of the knee were acquired. COMPARISON: [facility], , KNEE 3V RIGHT, 06/03/2016, 9:46. FINDINGS: Bones: No fractures or dislocations. No suspicious bony lesions. There is some moderate tricompartmental osteoarthritic degenerative change present. This appears relatively stable from prior examination. Soft tissues: No joint effusion. No suspicious soft tissue calcifications. IMPRESSION: 1. No evidence for acute osseous abnormality involving the patient's right knee. 2. Moderate stable tricompartmental osteoarthritic degenerative change. Dictated by: Zechariah Beckman M.D. on 08/11/2022 at 11:02 Approved by: Zechariah Beckman M.D. on 08/11/2022 at 11:05
== END ==
PROVIDERS: PCP Physician Assistant; Referring Provider Nurse Practitioner Family; Visit Provider Nurse Practitioner Family
DX: S86.911A Strain of unspecified muscle(s) and tendon(s) at lower leg level, right leg, initial encounter (principal)
CPT/HCPCS: 73562